=== PATIENT | male | born 1965 | race African-American/Black ===

== ENCOUNTER 2023-11-04 15:00 | Emergency (ER) | payer MEDICAID ==
[~2023-11-04] VITALS: Ht 177.8 cm; Wt 72.7 kg
[~2023-11-04 15:00] MED LIST: IBUP-1456 PO; PENI500T2 PO
[2023-11-04] MEDS: KETOROLAC TROMETH 60MG/2ML VIAL IM ONE (17:11)
[2023-11-04] MEDS: DexAMETHasone SOD PHOS 10MG/1ML VIAL INJ IM ONE (17:11)
[2023-11-04 17:21] VITALS: BP 127/84; PULSE 74; RESP 16; TEMP 98.7; O2SAT 97
[2023-11-04] MEDS ORDERED: IBUP-1454 PO (19:28)
[2023-11-04] MEDS ORDERED: AZIT4SOL LEFTEYE (19:28)
[2023-11-04] MEDS ORDERED: ACE3T PO (19:28)
== END 2023-11-04 20:10 | disposition home or self-care (01) ==
LOC: ER 15:00
DX: S00.12XA Contusion of left eyelid and periocular area, initial encounter (principal); S70.02XA Contusion of left hip, initial encounter; F17.210 Nicotine dependence, cigarettes, uncomplicated; F12.90 Cannabis use, unspecified, uncomplicated; Z79.1 Long term (current) use of non-steroidal anti-inflammatories (NSAID); Y08.89XA Assault by other specified means, initial encounter; Y93.89 Activity, other specified; Y92.89 Other specified places as the place of occurrence of the external cause; Y99.8 Other external cause status
CPT/HCPCS: 70450; 72040; 73502; 96372; 99285; J1100; J1885